=== PATIENT | female | born 1955 | race African-American/Black ===

== ENCOUNTER 2017-09-25 00:36 | Emergency (ER) | payer OTHER ==
[2017-09-25] MEDS ORDERED: DIPHENHYDRAMINE HCL 50 MG/ML VIAL IV ONE (01:00)
[2017-09-25] MEDS ORDERED: METHYLPREDNISOLONE INJ 125 MG/2 ML SDV IV ONE (01:00)
[2017-09-25] MEDS ORDERED: FAMOTIDINE INJ/PF 20 MG/2 ML SDV IV ONE (01:00)
[2017-09-25] MEDS ORDERED: KETAMINE HCL INJ 500 MG/10 ML VIAL IV ONE (01:05)
[2017-09-25] MEDS ORDERED: ETOMIDATE INJ/PF 20 MG/10 ML SDV IV ONE ×2 (01:06→01:08)
[2017-09-25] MEDS ORDERED: SUCCINYLCHOLINE CHLORIDE INJ 200 MG/10 ML VIAL IV ONE (01:06)
[2017-09-25] MEDS ORDERED: AMPICILLIN SOD/SULBACTAM 3 GM VIAL IV ONE (01:08)
[2017-09-25] MEDS ORDERED: KETAMINE HCL INJ 500 MG/10 ML VIAL ONE (01:08)
--- NOTE | 2017-09-25 01:10 | ER Document Report ---
ED General - General Chief Complaint: Swelling of Tongue Stated Complaint: SWOLLEN TONGUE Time Seen by Provider: 09/25/17 01:04 Notes: Patient is a 61-year-old female presents with complaint of swelling in her tongue and her neck. She says started yesterday but then gradually worsened throughout the night tonight and therefore she came to the ER. She is having difficulty breathing and difficulty handling secretions. She does admit that she has some dental infection. She said the swelling once before but says it was mild and resolved on its own. She has never had it to this level. She does take lisinopril and has never had any problems with this. No fevers. No vomiting. No other complaints at this time. - Related Data Allergies/Adverse Reactions: No Known Allergies Allergy (Verified 03/27/12 16:08) Past Medical History - Social History Smoking Status: Unknown if Ever Smoked Frequency of alcohol use: None Drug Abuse: None Family History: Reviewed & Not Pertinent - Past Medical History Cardiac Medical History: Reports: Hx Hypercholesterolemia, Hx Hypertension Denies: Hx Heart Attack Pulmonary Medical History: Reports: Hx Bronchitis - years ago Denies: Hx Tuberculosis Musculoskeltal Medical History: Reports Hx Arthritis Past Surgical History: Reports: Hx Hysterectomy - partial. Denies: Hx Pacemaker Review of Systems - Review of Systems Notes: My Normal Review Basic REVIEW OF SYSTEMS: CONSTITUTIONAL : Denies fever, chills, or sweats. Denies recent illness. EENT: Swelling below the mandible with difficulty swallowing. Recent dental infection. RESPIRATORY: Denies cough, cold, or chest congestion. Denies shortness of breath, difficulty breathing, or wheezing. GASTROINTESTINAL: Denies abdominal pain. Denies nausea, vomiting, or diarrhea. MUSCULOSKELETAL: Denies neck or back pain or joint pain or swelling. SKIN: Denies rash or skin lesions. NEUROLOGICAL: Denies altered mental status or loss of consciousness. Denies headache. Denies weakness or paralysis or loss of use of either side. Denies problems with gait or speech. Denies sensory or motor loss. ALL OTHER SYSTEMS REVIEWED AND NEGATIVE. Physical Exam - Vital signs Vitals: Temp Pulse Resp BP Pulse Ox 97.5 F 103 H 16 258/142 H 96 09/25/17 00:57 09/25/17 00:57 09/25/17 00:57 09/25/17 00:57 09/25/17 00:57 - Notes Notes: General Appearance: Well nourished, alert, cooperative, mild acute distress, no obvious discomfort. Vitals: reviewed, See vital signs table. Head: no swelling or tenderness to the head Eyes: PERRL, EOMI, Conjuctiva clear Mouth: Patient's tongue is pushed up and elevated in the mouth with swelling into the floor the mouth consistent with Celso's angina. Patient has a hard time clearing secretions on her own. Throat: No tonsillar inflammation, No airway obstruction, No lymphadenopathy Neck: She has large amount of swelling and firmness below the mandible that goes underneath the chin and over across to the other side of the mandible. Lungs: No wheezing, No rales, No rhonci, No accessory muscle use, good air exchange bilaterally. Heart: Normal rate, Regular rythm, No murmur, no rub Abdomen: Normal BS, soft, No rigidity, No abdominal tenderness, No guarding, no rebound, no abdominal masses, no organomegaly Extremities: strength 5/5 in all extremities, good pulses in all extremities, no swelling or tenderness in the extremities, no edema. Skin: warm, dry, appropriate color, no rash Neuro: Speech is slightly slurred due to the swelling in the floor the mouth and the tongue., oriented x 3, normal affect, responds appropriately to questions Course - Re-evaluation Re-evalutation: 09/25/17 01:09 Patient is a little weeks angina. She is already having some airway compromise. We need to protect her airways because any further airway compromise will cause hypoxia. I have called a general surgeon, Dr. Fabian, who is going to come to bedside to be available for surgical airway if needed. 09/25/17 01:47 Patient was given etomidate and Versed. She was sedated. I was able to see the airway unable to pass the tube without paralytics. I gave her succinylcholine was able to pass the ET tube through the cords. Patient is intubated and airway is protected. I have added Unasyn. She has hypertension and therefore will order propofol for sedation. She was not given the ketamine because patient was very hypertensive. 09/25/17 03:49 09/25/17 06:[address] Josh Camara, oral surgeon, who agrees to accept the patient for transfer. She does stable on the ventilator. Blood pressure was much improved at 160/90. It did just start trending upwards again. I will give the patient another dose of hydralazine as this seemed to help with her blood pressure earlier. Dictation of this chart was performed using voice recognition software; therefore, there may be some unintended grammatical errors. - Vital Signs Vital signs: Temp Pulse Resp BP Pulse Ox 97.5 F 99 12 170/91 H 98 09/25/17 00:57 09/25/17 01:00 09/25/17 04:41 09/25/17 04:41 09/25/17 04:41 - Laboratory Result Diagrams: 09/25/17 01:13 09/25/17 01:13 Laboratory results interpreted by me: 09/25/17 09/25/17 01:13 01:13 RDW 15.6 H Sodium 154.4 H Chloride 108 H BUN 28 H Creatinine 1.79 H Est GFR ( Amer) 35 L Est GFR (Non-Af Amer) 29 L Calcium 10.5 H Total Protein 8.6 H Discharge - Discharge Clinical Impression: Celso's angina Hypertension Qualifiers: Hypertension type: unspecified Qualified Code(s): I10 - Essential (primary) hypertension Condition: Stable Disposition: [place]
[2017-09-25] MEDS ORDERED: HYDRALAZINE HCL INJ/PF 20 MG/1 ML SDV ONE (01:29)
[2017-09-25] MEDS ORDERED: MIDAZOLAM 2 MG/2 ML INJ ONE (01:39)
[2017-09-25] MEDS ORDERED: PROPOFOL INJ 200 MG/20 ML VIAL IV ONE (01:47)
[2017-09-25] MEDS ORDERED: PROPOFOL 100 ML IV ONE ×2 (01:47→03:43)
[2017-09-25] MEDS ORDERED: PROPOFOL 100 ML IV PRN (01:48)
[2017-09-25] MEDS ORDERED: NORMAL SALINE 500 ML IV ONE (01:54)
[2017-09-25 01:57] LABS: ABSOLUTE BASOPHILS # (AUTO) 0.1 10^3/uL (0.0-0.2); ABSOLUTE EOSINOPHILS # (AUTO) 0.2 10^3/uL (0.0-0.6); ABSOLUTE LYMPHOCYTES (AUTO) 2.8 10^3/uL (0.5-4.7); ABSOLUTE MONOCYTES (AUTO) 0.5 10^3/uL (0.1-1.4); ABSOLUTE NEUT (AUTO) 5.3 10^3/uL (1.7-8.2); BASOPHILS % (AUTO) 1.3 % (0-2); EOSINOPHILS % (AUTO) 2.5 % (0-6); HEMATOCRIT 43.6 % (36.0-47.0); LYMPHOCYTES % (AUTO) 31.3 % (13-45); MEAN CORPUSCULAR HGB CONC 34.4 g/dL (32.0-36.0); MEAN CORPUSCULAR VOLUME 96 fl (80-97); MONOCYTES % (AUTO) 5.9 % (3-13); PLATELET COUNT 220 10^3/uL (150-450); RED BLOOD COUNT 4.54 10^6/uL (3.72-5.28); RED CELL DISTRIBUTION WIDTH 15.6 % (11.5-14.0); TOTAL CELLS COUNTED % (AUTO) 100 %
[2017-09-25 02:06] LABS: INTERNATIONAL RATION (INR) 0.83; PARTIAL THROMBOPLASTIN TIME 26.1 SEC (23.5-35.8); PROTHROMBIN TIME 11.8 SEC (11.4-15.4)
[2017-09-25 02:08] LABS: ALANINE AMINOTRANSFERASE 26 U/L (9-52); ALBUMIN 4.7 g/dL (3.5-5.0); ALKALINE PHOSPHATASE 68 U/L (38-126); ANION GAP 19 (5-19); ASPARTATE AMINO TRANSFERASE 23 U/L (14-36); BILIRUBIN,DIRECT 0.3 mg/dL (0.0-0.4); BILIRUBIN,TOTAL 0.3 mg/dL (0.2-1.3); BLOOD UREA NITROGEN 28 mg/dL (7-20); CALCIUM 10.5 mg/dL (8.4-10.2); CARBON DIOXIDE 27 mmol/L (22-30); CHLORIDE 108 mmol/L (98-107); GLUCOSE 99 mg/dL (75-110); SODIUM 154.4 mmol/L (137-145); TOTAL PROTEIN 8.6 g/dL (6.3-8.2)
[2017-09-25] MEDS ORDERED: MIDAZOLAM HCL 50 MG/100 ML RTUINJ IV PRN (02:09)
[2017-09-25] MEDS ORDERED: MIDAZOLAM 2 MG/2 ML INJ IV ONE (03:48)
[2017-09-25] MEDS ORDERED: HYDRALAZINE HCL INJ/PF 20 MG/1 ML SDV IV ONE ×2 (03:49→06:18)
--- NOTE | 2017-09-25 04:40 | RADIOLOGY REPORT (SQ) ---
EXAM DESCRIPTION: CHEST SINGLE VIEW CLINICAL HISTORY: S/P ETT PLACEMENT COMPARISON: 03/27/2012 FINDINGS: Single frontal view of the chest. Endotracheal tube with tip 3 cm above the kiran. NG tube with tip below the diaphragm. Atherosclerotic calcification aortic arch. Heart is not enlarged. Left basilar airspace opacity. No pneumothorax. Low lung volumes. Leads overlie the chest. No acute osseous abnormalities. Upper abdominal soft tissues are unremarkable. IMPRESSION: 1. Life-support apparatus in appropriate position. 2. Left basilar airspace opacities concerning for pneumonia.
--- NOTE | 2017-09-25 05:06 | RADIOLOGY REPORT (SQ) ---
EXAM DESCRIPTION: CT SOFT TISSUE NECK WITH CLINICAL HISTORY: ludwigs angina COMPARISON: None available TECHNIQUE: Axial CT of the neck soft tissues obtained following the uncomplicated intravenous administration of 75 mL Isovue-370. FINDINGS: No definite abnormality in the visualized intracranial contents. There is thickening of the paranasal sinuses. Endotracheal tube visualized with tip above the kiran. NG tube visualized. Orbits and globes are unremarkable. No acute facial bone fracture identified. No abnormalities of visualized cervical or thoracic spine. Visualized parotid and submandibular glands are unremarkable. No abnormalities in the pharyngeal mucosal space or parapharyngeal space. No abnormalities in the retropharyngeal space. No well-circumscribed fluid collections identified. Mildly prominent submandibular lymph nodes. No abnormalities in the jugular or carotid spaces. No abnormalities of the thyroid gland. Visceral space is unremarkable. Visualized superior mediastinal structures including great vessels demonstrate no acute abnormalities. Atherosclerotic calcification of the thoracic aorta. Calcified right hilar lymph nodes. No pneumothorax is identified in the visualized lungs with by lateral dependent airspace opacities which could represent atelectasis or consolidation. Periapical lucencies of the first maxillary molars bilaterally. Periapical lucency of the lateral left mandibular first molar. No well-circumscribed oral cavity abscess. There does appear to be inflammatory change of the floor of the mouth DLP: 534.43 mGy-cm IMPRESSION: 1. Inflammatory change involving the tongue base above the mylohyoid muscle without well-circumscribed abscess. These findings could be seen with inflammatory phlegmon. Mild submandibular lymphadenopathy is likely reactive. 2. Periapical lucencies of the bilateral first maxillary molars and left first mandibular molar. This exam was performed according to our departmental dose-optimization program, which includes automated exposure control, adjustment of the mA and/or kV according to patient size and/or use of iterative reconstruction technique.
--- NOTE | 2017-09-25 11:18 | ER Document Report ---
Doctor's Note Notes: 09/25/17 11:03 Morning rounds. Patient is intubated and on a ventilator. Appears to be comfortable and sufficiently sedated. Vital signs are all normal. Awaiting transfer to [facility]. They are sending a fixed wing aircraft which is reportedly leaving [facility] at this time. Patient remained stable. Marivel Alvarez MD 09/25/17 12:21 Received word that fixed wing aircraft has landed in [place] and patient should be picked up soon. No change in condition. Still on ventilator. All vital signs are normal. Patient remained stable for transfer. Marivel Alvarez MD
[2017-09-25] MEDS ORDERED: SUCCINYLCHOLINE CHLORIDE INJ 200 MG/10 ML VIAL ONE (11:30)
[2017-09-25 13:08] LABS: ARTERIAL BLOOD BASE EXCESS 0.1 mmol/L; ARTERIAL BLOOD H2CO3 1.25 mmol/L (1.05-1.35); ARTERIAL BLOOD O2 SATURATION 96.9 % (94-98); ARTERIAL BLOOD PCO2 41.5 mmHg (35-45); ARTERIAL BLOOD PO2 90.7 mmHg (80-100); ARTERIAL BLOOD TOTAL CO2 26.2 mmol/L (21-25)
[2017-09-25 13:13] LABS: ARTERIAL BLOOD FIO2 40%
[2017-09-25 13:23] VITALS: BP 163/92
== END 2017-09-25 13:23 | disposition short-term general hospital (02) ==
LOC: ER 00:36
PROC: 0BH17EZ Insertion of Endotracheal Airway into Trachea, Via Natural or Artificial Opening (ICD-10-PCS; principal; 2017-09-25)
DX: K12.2 Cellulitis and abscess of mouth (principal); R22.0 Localized swelling, mass and lump, head; R22.1 Localized swelling, mass and lump, neck; E78.00 Pure hypercholesterolemia, unspecified; I10 Essential (primary) hypertension
CPT/HCPCS: 96376; 99291; 96375; 96365; 36415; 82803; 85025; 85610; 85730; 80053; 71045; 70491; 31500; J2250 ×2; J0295; J2704 ×2; J0360; J0330; J7040; J3490; 94002

== ENCOUNTER 2017-11-13 15:29 | Emergency (ER) | payer OTHER ==
[2017-11-13 16:51] LABS: ABSOLUTE BASOPHILS # (AUTO) 0.1 10^3/uL (0.0-0.2); ABSOLUTE EOSINOPHILS # (AUTO) 0.3 10^3/uL (0.0-0.6); ABSOLUTE LYMPHOCYTES (AUTO) 2.2 10^3/uL (0.5-4.7); ABSOLUTE MONOCYTES (AUTO) 0.6 10^3/uL (0.1-1.4); ABSOLUTE NEUT (AUTO) 6.3 10^3/uL (1.7-8.2); BASOPHILS % (AUTO) 0.6 % (0-2); HEMATOCRIT 43.2 % (36.0-47.0); HEMOGLOBIN 14.9 g/dL (12.0-15.5); LYMPHOCYTES % (AUTO) 22.8 % (13-45); MEAN CORPUSCULAR HEMOGLOBIN 32.9 pg (27.0-33.4); MEAN CORPUSCULAR HGB CONC 34.4 g/dL (32.0-36.0); MEAN CORPUSCULAR VOLUME 96 fl (80-97); MONOCYTES % (AUTO) 6.8 % (3-13); PLATELET COUNT 264 10^3/uL (150-450); RED BLOOD COUNT 4.52 10^6/uL (3.72-5.28); RED CELL DISTRIBUTION WIDTH 15.1 % (11.5-14.0); SEGMENTED NEUTROPHILS % (AUTO) 66.8 % (42-78); TOTAL CELLS COUNTED % (AUTO) 100 %; WHITE BLOOD COUNT 9.5 10^3/uL (4.0-10.5)
[2017-11-13 17:12] LABS: ALANINE AMINOTRANSFERASE 17 U/L (9-52); ALBUMIN 4.8 g/dL (3.5-5.0); ALKALINE PHOSPHATASE 75 U/L (38-126); ANION GAP 11 (5-19); ASPARTATE AMINO TRANSFERASE 22 U/L (14-36); BILIRUBIN,DIRECT 0.5 mg/dL (0.0-0.4); BILIRUBIN,TOTAL 0.5 mg/dL (0.2-1.3); BLOOD UREA NITROGEN 10 mg/dL (7-20); CALCIUM 10.2 mg/dL (8.4-10.2); CARBON DIOXIDE 29 mmol/L (22-30); CHLORIDE 109 mmol/L (98-107); CREATINE KINASE 49 U/L (30-135); GLUCOSE 94 mg/dL (75-110); POTASSIUM 4.2 mmol/L (3.6-5.0); SODIUM 149.3 mmol/L (137-145); TOTAL PROTEIN 9.2 g/dL (6.3-8.2)
--- NOTE | 2017-11-13 17:23 | RADIOLOGY REPORT (SQ) ---
EXAM DESCRIPTION: CT HEAD WITHOUT COMPLETED DATE/TIME: 11/13/2017 5:07 pm REASON FOR STUDY: left leg weakness COMPARISON: None. TECHNIQUE: Axial images acquired through the brain without intravenous contrast. Images reviewed wi th bone, brain and subdural windows. Additional sagittal and coronal reconstructions were generated. Images stored on PACS. All CT scanners at this facility use dose modulation, iterative reconstruction, and/or weight based d osing when appropriate to reduce radiation dose to as low as reasonably achievable (ALARA). [facility]: Dose Right [facility]: CareDose [facility]: Dose Right [facility]: Teradose 4D [facility]: [employer] [place] RADIATION DOSE: CT Rad equipment meets quality standard of care and radiation dose reduction techniq ues were employed. CTDIvol: 53.2 mGy. DLP: 1070 mGy-cm. mGy. LIMITATIONS: None. FINDINGS: VENTRICLES: Normal size and contour. CEREBRUM: No masses. No hemorrhage. No midline shift. No evidence for acute infarction. Normal gra y/white matter differentiation. No areas of low density in the white matter. CEREBELLUM: No masses. No hemorrhage. No alteration of density. No evidence for acute infarction. Incidental reggie cisterna magna. EXTRAAXIAL SPACES: No fluid collections. No masses. ORBITS AND GLOBE: No intra- or extraconal masses. Normal contour of globe without masses. CALVARIUM: No fracture. PARANASAL SINUSES: No fluid or mucosal thickening. SOFT TISSUES: No mass or hematoma. OTHER: No other significant finding. IMPRESSION: No acute intracranial abnormality. EVIDENCE OF ACUTE STROKE: NO. COMMENT: Quality ID # [id number]: Final reports with documentation of one or more dose reduction techniques (e.g., Automated exposure control, adjustment of the mA and/or kV according to patient size, use of iterative reconstruction technique) TECHNICAL DOCUMENTATION: JOB ID: [id number] [employer]- All Rights Reserved Reading location - IP/workstation name: [email or web address]
[2017-11-13] MEDS ORDERED: AMLODIPINE BESYLATE 5 MG TABLET PO ONE (19:09)
--- NOTE | 2017-11-13 19:12 | ER Document Report ---
ED General - General Chief Complaint: Weakness Stated Complaint: WEAKNESS Time Seen by Provider: 11/13/17 16:38 Notes: The patient is a 61-year-old female, past medical history hypertension, presents with several days of intermittent left leg weakness. She says she feels this way when she is under increased stress and then will notice her left leg give out. In the ER, she has absolutely no symptoms at all. Patient was recently started on Norvasc after she was discharged from [facility] for Celso's angina. She has not yet followed up with the primary care physician. Patient denies chest pain, shortness of breath, back pain, numbness, tingling, headache , blurry vision, leg injury, hip pain or urinary symptoms. TRAVEL OUTSIDE OF THE [place] IN LAST 30 DAYS: No - Related Data Allergies/Adverse Reactions: No Known Allergies Allergy (Verified 09/25/17 06:51) Past Medical History - General Information source: Patient - Social History Smoking Status: Never Smoker Chew tobacco use (# tins/day): No Frequency of alcohol use: None Drug Abuse: None Family History: Reviewed & Not Pertinent Patient has suicidal ideation: No Patient has homicidal ideation: No - Past Medical History Cardiac Medical History: Reports: Hx Hypercholesterolemia, Hx Hypertension Denies: Hx Heart Attack Pulmonary Medical History: Reports: Hx Bronchitis - years ago Denies: Hx Tuberculosis Renal/ Medical History: Denies: Hx Peritoneal Dialysis GI Medical History: Denies: Hx Hiatal Hernia Musculoskeltal Medical History: Reports Hx Arthritis Past Surgical History: Reports: Hx Hysterectomy. Denies: Hx Pacemaker Review of Systems - Review of Systems Notes: REVIEW OF SYSTEMS: CONSTITUTIONAL: -fevers, -chills EENT: -eye pain, -difficulty swallowing, -nasal congestion CARDIOVASCULAR: -chest pain, -syncope. RESPIRATORY: -cough, -SOB GASTROINTESTINAL: -abdominal pain, -nausea, -vomiting, -diarrhea GENITOURINARY: -dysuria, -hematuria MUSCULOSKELETAL: -back pain, -neck pain SKIN: -rash or skin lesions. HEMATOLOGIC: -easy bruising or bleeding. LYMPHATIC: -swollen, enlarged glands. NEUROLOGICAL: -altered mental status or loss of consciousness, -headache, + intermittent left leg weakness PSYCHIATRIC: -anxiety, -depression. ALL OTHER SYSTEMS REVIEWED AND NEGATIVE. Physical Exam - Vital signs Vitals: Temp Pulse Resp BP Pulse Ox 99.3 F 92 16 184/103 H 100 11/13/17 15:36 11/13/17 15:36 11/13/17 15:36 11/13/17 15:36 11/13/17 15:36 - Notes Notes: PHYSICAL EXAMINATION: GENERAL: Well-appearing, well-nourished and in no acute distress. HEAD: Atraumatic, normocephalic. EYES: Pupils equal round and reactive to light, extraocular movements intact, sclera anicteric, conjunctiva are normal. ENT: nares patent, oropharynx clear without exudates. Moist mucous membranes. NECK: Normal range of motion, supple without lymphadenopathy LUNGS: Breath sounds clear to auscultation bilaterally and equal. No wheezes rales or rhonchi. HEART: Regular rate and rhythm without murmurs ABDOMEN: Soft, nontender, normoactive bowel sounds. No guarding, no rebound. No masses appreciated. EXTREMITIES: Normal range of motion, no pitting or edema. No cyanosis. Strong distal pulses. NEUROLOGICAL: Cranial nerves grossly intact. Normal speech, normal gait. Normal sensory and motor exams. PSYCH: Normal mood, normal affect. SKIN: Warm, Dry, normal turgor, no rashes or lesions noted. Course - Re-evaluation Re-evalutation: Patient is having absolutely no symptoms at this time. Blood work is unremarkable and her head CT does not show any acute findings. Her intermittent left leg weakness started after she is under increased stress at home because she has to leave her house that she has lived in for 21 years. With strong distal pulses, lack of abdominal or back pain and no chest pain, do not suspect aortic dissection at this time. She has no red flag symptoms for back pain. Patient is ambulating without any difficulty and has 5 out of 5 strength in her leg. She has a known history of hypertension and was recently started on Norvasc last week. If this is a TIA, her ABCD2 score is 3 and she is safe for outpatient work-up. Instructed her to follow-up with her primary care physician and neurologist for further evaluation and treatment. - Vital Signs Vital signs: Temp Pulse Resp BP Pulse Ox 99.3 F 92 16 184/103 H 100 11/13/17 15:36 11/13/17 15:36 11/13/17 15:36 11/13/17 15:36 11/13/17 15:36 - Laboratory Result Diagrams: 11/13/17 16:41 11/13/17 16:41 Laboratory results interpreted by me: 11/13/17 11/13/17 16:41 16:41 RDW 15.1 H Sodium 149.3 H Chloride 109 H Direct Bilirubin 0.5 H Total Protein 9.2 H - Diagnostic Test Radiology reviewed: Image reviewed, Reports reviewed Radiology results interpreted by me: CT Head: NAD CXR: NAD - EKG Interpretation by Me EKG shows normal: Sinus rhythm, [place], Intervals, QRS Complexes, ST-T Waves Rate: Normal Discharge - Discharge Clinical Impression: Transient left leg weakness Hypertension Qualifiers: Hypertension type: unspecified Qualified Code(s): I10 - Essential (primary) hypertension Condition: Stable Disposition: HOME, SELF-CARE Additional Instructions: Follow-up with your primary care physician for further evaluation of your intermittent leg weakness and high blood pressure. Continue your Norvasc. Weakness We did not find a definite cause for your weakness. This may require further medical tests. Weakness can be caused by infection, physical exhaustion , rapid weight loss, dehydration, or medicine side effects. Diseases of the muscles, heart, nerves, and blood vessels can make you weak. Sometimes the problem is simply depression or lack of exercise. You should get plenty of rest. Unless the doctor tells you otherwise, it's usually best to add short periods of regular mild exercise. Eat a nutritious diet with multiple small, low-sugar meals. If symptoms continue, additional medical evaluation will be necessary. Be sure to follow up as instructed. If you become very dizzy, nauseated, or feel like you're going to faint, lie down right away. Wait until the symptoms have passed before you get up again. Stand up slowly. Call the doctor or return if you develop chest pain, abdominal pain, severe headache, irregular heartbeat or very fast pulse, confusion, vision problems, fever, muscular pain, or any other new symptom. Forms: Elevated Blood Pressure Referrals: ANNE MARIE CRUZ MD [NO LOCAL MD] - Follow up as needed YANDY MCFARLANE MD [ACTIVE STAFF] - Follow up as needed
[2017-11-13 19:29] VITALS: BP 184/116
== END 2017-11-13 19:30 | disposition home or self-care (01) ==
LOC: ER 15:29
DX: M62.81 Muscle weakness (generalized) (principal); I10 Essential (primary) hypertension
CPT/HCPCS: 36415; 70450; 80053; 82550; 85025; 99285